=== PATIENT | male | born 1955 | race African-American/Black ===

== ENCOUNTER → 2018-05-04 | Outpatient (CLI) | payer OTHER ==
--- NOTE | 2018-05-07 07:55 | XCELERA REPORT ---
[address] [address] Lower Extremity Arterial Evaluation Name: ADRYAN AVALOS Age: 62 yrs Gender: Male : 1955 Patient Status: Outpatient Patient Location: Study Date: 05/04/2018 08:02 AM Procedure: A color flow and duplex scan of the lower extremity arteries was performed bilaterally with velocity and waveform anaylsis. Reason For Study: PVD Ordering Physician: ALBERT DASILVA Performed By: Elder Lima Measurements and Calculations Right Left ROOFING APPLICATOR PSV 161.5 128.5 cm/sec Prox PFA PSV -177.3 -163.3 cm/sec Prox SFA PSV 118.7 108.7 cm/sec Mid SFA PSV -149.3 -95.4 cm/sec Dist SFA PSV -78.1 -143.0 cm/sec Prox Pop A PSV 120.1 125.7 cm/sec Dist BARBARA PSV 57.1 51.0 cm/sec Dist AIRLINE CUSTOMER SERVICE AGENT PSV 85.1 84.5 cm/sec Jefferson Pedis PSV -7.7 cm/sec Right Side Arterial Evaluation Normal velocity and triphasic waveforms noted from the Common Femoral artery to the infrageniculate vessels. Biphasic, low velocity, "to and fro" flow in the Dorsalis Pedis. Unquantifiable stenosis at the Dorsalis Pedis artery. Ankle Brachial index was declined. Left Side Arterial Evaluation Normal velocity and triphasic waveforms noted in the Common Femoral artery. Biphasic in the Popliteal. Monophasic with preserved velocities in the infrageniculate vessels. 20-49% stenosis at the Femoral artery. sequential changes. Ankle Brachial index not possible due to bandaging.. Interpretation Summary Mild hemodynamically significant lesions in the right lower extremity only, on duplex imaging, at rest. Severe hemodynamically significant lesions in the left lower extremity only, on duplex imaging, at rest. : ALBERT DASILVA > [place]
== END ==
LOC: SP 07:38
PROVIDERS: ATTEND Podiatrist Foot & Ankle Surgery
DX: I73.9 Peripheral vascular disease, unspecified (principal)
CPT/HCPCS: 93925

== ENCOUNTER 2018-07-25 00:45 | Inpatient (IN) | payer OTHER ==
--- NOTE | 2018-07-25 00:55 | ER Document Report ---
ED General - General Stated Complaint: RESPIRATORY DISTRESS Time Seen by Provider: 07/25/18 00:52 Cannot obtain history due to: Altered mental status Notes: Patient is a 62-year-old male with a past medical history of CHF, diabetes, hypertension, hyperlipidemia, peripheral arterial disease, who presents by EMS with an episode of altered mental status and hypoxia. Apparently EMS was contacted and brought to his [facility] facility. They noted that the patient was hypoglycemic to 45 and saturating 61% on 4 liters of nasal cannula. Patient was given D50 and transported to the emergency department. History is quite limited as patient is somewhat confused, uncertain of his medical history or what happened tonight. TRAVEL OUTSIDE OF THE [place] IN LAST 30 DAYS: No - Related Data Allergies/Adverse Reactions: No Known Allergies Allergy (Verified 07/25/18 01:47) Past Medical History - General Information source: Patient, Emergency Med Personnel - Social History Smoking Status: Never Smoker Frequency of alcohol use: None Drug Abuse: None Lives with: Senior Living Family History: Reviewed & Not Pertinent Review of Systems - Review of Systems Notes: Constitutional: Negative for fever. HENT: Negative for sore throat. Eyes: Negative for visual changes. Cardiovascular: Negative for chest pain. Respiratory: Positive for shortness of breath. Gastrointestinal: Negative for abdominal pain, vomiting or diarrhea. Genitourinary: Negative for dysuria. Musculoskeletal: Negative for back pain. Skin: Negative for rash. Neurological: Negative for headaches, weakness or numbness. 10 point ROS negative except as marked above and in HPI. Physical Exam - Vital signs Vitals: Pulse Resp BP Pulse Ox 92 20 134/72 H 92 07/25/18 00:46 07/25/18 00:46 07/25/18 00:46 07/25/18 00:46 Interpretation: Hypoxic, Tachypneic Notes: PHYSICAL EXAMINATION: GENERAL: Moderate respiratory distress HEAD: Atraumatic, normocephalic. EYES: Pupils equal round and reactive to light, extraocular movements intact, sclera anicteric, conjunctiva are normal. ENT: nares patent, oropharynx clear without exudates. Moist mucous membranes. NECK: Normal range of motion, supple without lymphadenopathy LUNGS: Moderate respiratory distress, tachypnea, diffuse rales throughout. HEART: Regular tachycardia without murmurs ABDOMEN: Soft, nontender, normoactive bowel sounds. No guarding, no rebound. No masses appreciated. EXTREMITIES: Left BKA. Right lower extremity with 2+ pitting edema NEUROLOGICAL: No focal neurological deficits. Moves all extremities spontaneously and on command. PSYCH: Somewhat lethargic, oriented to person. Unclear to the history of tonight's events. SKIN: Warm, Dry, normal turgor, no rashes or lesions noted. Course - Re-evaluation Re-evalutation: 07/25/18 00:53 Patient presents with hypoglycemia, apparently was in respiratory distress earlier when he is quite lethargic in the setting of hypoglycemia. He presents alert, oriented but very unclear on tonight's events. He does have an oxygen dependency at baseline although is uncertain why. Examination reveals rales at the bases bilaterally. He is moderately tachypneic, in moderate respiratory distress, saturating 96% on 4 L by nasal cannula but does not know how much he normally uses. He denies any chest pain. He states prior to the onset of hyperglycemia he did not have any acute complaints. Will obtain chest x-ray, labs, reassess the patient. Patient is in guarded condition and will require frequent reassessments. 07/25/18 01:52 Patient is hypothermic, rectal temperature 93.7. Chest x-ray does show marketed pulmonary edema, vascular congestion and cardiomegaly. Patient is saturating 91-92% on 5 L. He will be transitioned to BiPAP given the profound degree of pulmonary edema. IV furosemide, 40 mg will be administered. His labs also show prominent anemia at 7.8 although review of previous laboratories does show that this is chronic in nature. No evidence of renal dysfunction. BNP is also quite elevated. Patient will require hospitalization. Continue to monitor for stabilization and then discussed with the hospitalist. 07/25/18 02:34 I discussed this case with Dr. Marcum who has accepted patient for admission. The patient's work of breathing has much improved on BiPAP. - Vital Signs Vital signs: Temp Pulse Resp BP Pulse Ox 93.7 F L 92 22 H 134/72 H 94 07/25/18 01:43 07/25/18 00:46 07/25/18 01:55 07/25/18 01:01 07/25/18 01:55 - Laboratory Result Diagrams: 07/25/18 00:52 07/25/18 00:52 Laboratory results interpreted by me: 07/25/18 07/25/1818 00:52 00:52 00:52 RBC 2.93 L Hgb 7.9 L Hct 24.2 L MCH 26.8 L RDW 17.6 H Plt Count 575 H Seg Neutrophils % 80.7 H Lymphocytes % 9.8 L Carbon Dioxide 31 H BUN 38 H Calcium 8.3 L NT-Pro-B Natriuret Pep 4720 H - Diagnostic Test Radiology reviewed: Image reviewed, Reports reviewed Radiology results interpreted by me: 07/25/18 01:52 Chest x-ray: Pulmonary edema, cardiomegaly, vascular congestion Critical Care Note - Critical Care Note Total time excluding time spent on procedures (mins): 38 Comments: Critical care time spent obtaining history from patient or surrogate, discussions with consultants, development of treatment plan with patient or surrogate, evaluation of patient's response to treatment, examination of patient , ordering and performing treatments and interventions, ordering and review of laboratory studies, re-evaluation of patient's condition, ordering and review of radiographic studies and review of old charts Discharge - Discharge Clinical Impression: Respiratory distress, Chronic anemia CHF exacerbation Qualifiers: Heart failure type: unspecified Qualified Code(s): I50.9 - Heart failure, unspecified Pulmonary edema Qualifiers: Chronicity: acute Qualified Code(s): J81.0 - Acute pulmonary edema Hypothermia Qualifiers: Encounter type: initial encounter Qualified Code(s): T68.XXXA - Hypothermia, initial encounter Condition: Fair Disposition: ADMITTED INPATIENT Admitting Provider: Hospitalist Unit Admitted: Telemetry Referrals: MARVIN GERMAIN MD [NO LOCAL MD] - Follow up as needed
[2018-07-25 01:18] LABS: ANION GAP 6 (5-19); BLOOD UREA NITROGEN 38 mg/dL (7-20); CALCIUM 8.3 mg/dL (8.4-10.2); CARBON DIOXIDE 31 mmol/L (22-30); CHLORIDE 100 mmol/L (98-107); GLUCOSE 89 mg/dL (75-110); POTASSIUM 4.2 mmol/L (3.6-5.0)
--- NOTE | 2018-07-25 01:25 | RADIOLOGY REPORT (SQ) ---
XR CHEST 1 VIEW HISTORY: Shortness of breath. COMPARISON: None. FINDINGS/IMPRESSION: Mild cardiomegaly is present with pulmonary vascular congestion. Airspace opacity within the right mid and lower lung zones. Hazy opacity in the left midlung zone. Small bowel pleural effusions are present. No acute osseous findings.
[2018-07-25 01:28] LABS: ABSOLUTE LYMPHOCYTES (AUTO) 0.9 10^3/uL (0.5-4.7); ABSOLUTE MONOCYTES (AUTO) 0.8 10^3/uL (0.1-1.4); ABSOLUTE NEUT (AUTO) 7.3 10^3/uL (1.7-8.2); BASOPHILS % (AUTO) 0.4 % (0-2); EOSINOPHILS % (AUTO) 0.4 % (0-6); HEMATOCRIT 24.2 % (37.9-51.0); LYMPHOCYTES % (AUTO) 9.8 % (13-45); MEAN CORPUSCULAR HEMOGLOBIN 26.8 pg (27.0-33.4); MEAN CORPUSCULAR HGB CONC 32.5 g/dL (32.0-36.0); MEAN CORPUSCULAR VOLUME 83 fl (80-97); MONOCYTES % (AUTO) 8.7 % (3-13); NT PRO BNP 4720 pg/mL (5-900); PLATELET COUNT 575 10^3/uL (150-450); RED BLOOD COUNT 2.93 10^6/uL (4.35-5.55); RED CELL DISTRIBUTION WIDTH 17.6 % (11.5-14.0); SEGMENTED NEUTROPHILS % (AUTO) 80.7 % (42-78); TOTAL CELLS COUNTED % (AUTO) 100 %; WHITE BLOOD COUNT 9.1 10^3/uL (4.0-10.5)
[2018-07-25 01:29] LABS: HEMOGLOBIN 7.9 g/dL (13.5-17.0)
[2018-07-25 01:32] LABS: TROPONIN I < 0.012 ng/mL
[2018-07-25] MEDS ORDERED: FUROSEMIDE INJ/PF 40 MG/4 ML SDV IV ONE (01:36)
[2018-07-25] MEDS ORDERED: ENALAPRILAT DIHYDRATE INJ/PF 1.25 MG/1 ML SDV IV PRN (03:06)
[2018-07-25] MEDS ORDERED: GLUCAGON,HUMAN RECOMB 1 MG INJ IM PRN (03:06)
[2018-07-25] MEDS ORDERED: DEXTROSE 40% GEL 15 GM TUBE PO PRN ×2 (03:06)
[2018-07-25] MEDS ORDERED: MAGNESIUM HYDROXIDE SUSP 30 ML UDCUP PO PRN (03:06)
[2018-07-25] MEDS ORDERED: INSULIN LISPRO 100 UNIT/ML 3 ML VIAL SUBCUT PRN (03:06)
[2018-07-25] MEDS ORDERED: ACETAMINOPHEN 325 MG TABLET PO PRN (03:06)
[2018-07-25] MEDS ORDERED: DEXTROSE 50%-WATER 25 GM/50 ML DISP.SYRIN IV PRN ×2 (03:06)
[2018-07-25] MEDS ORDERED: NITROGLYCERIN 5 MG (0.2 MG/HR) PATCH.TD24 TD ONE (03:30)
[2018-07-25 05:34] LABS: ABSOLUTE RETICS # 0.065 10^6/uL (0.028-0.122); RETICULOCYTE COUNT (AUTO) 2.32 % (0.66-2.85)
[2018-07-25 05:41] LABS: CREATINE KINASE 70 U/L (55-170); IRON(TIBC) 14.6 ug/dL (49-181)
[2018-07-25 05:57] LABS: CREATINE KINASE MB 2.53 ng/mL (<4.55); TROPONIN I 0.028 ng/mL
--- NOTE | 2018-07-25 06:32 | PDOC H&P ---
History of Present Illness Admission Date/PCP: 07/25/18 02:51 Patient complains of: Respiratory distress History of Present Illness: ADRYAN AVALOS is a 62 year old male custodial resident with altered mental status and unclear history as he arrives without medical history. He is noted by nursing staff to have shortness of breath and referred to the emergency room for evaluation where he is found to have bilateral infiltrates, hypoglycemia, hypothermia and referred to the hospitalist for admission. He receives dextrose , bear hugger and empiric antibiotics and referred to the hospitalist for admission. Past Medical History Medical History: Other - Unknown Cardiac Medical History: Reports: Congestive Heart Failure Endocrine Medical History: Reports: Diabetes Mellitus Type 2 Psychiatric Medical History: Reports: Dementia Past Surgical History Past Surgical History: Reports: Other - Left BKA Social History Information Source: Emergency Med Personnel, [facility] Records Lives with: Detention Smoking Status: Never Smoker - Advance Directive Resuscitation Status: Full Code Family History Family History: Other - Unobtainable Parental Family History Reviewed: No - Unobtainable Children Family History Reviewed: No - Unobtainable Sibling(s) Family History Reviewed.: No - Unobtainable Medication/Allergy Allergies/Adverse Reactions: No Known Allergies Allergy (Verified 07/25/18 01:47) Review of Systems ROS unobtainable: Due to mental status Physical Exam Vital Signs: Temp Pulse Resp BP Pulse Ox 93.7 F L 92 14 141/60 H 93 07/25/18 01:43 07/25/18 00:46 07/25/18 02:02 07/25/18 02:02 07/25/18 02:02 General appearance: PRESENT: disheveled, mild distress. ABSENT: cooperative Head exam: PRESENT: atraumatic, normocephalic Eye exam: PRESENT: conjunctiva pink, EOMI, PERRLA. ABSENT: scleral icterus Ear exam: PRESENT: normal external ear exam Mouth exam: PRESENT: moist, tongue midline Neck exam: ABSENT: carotid bruit, JVD, lymphadenopathy, thyromegaly Respiratory exam: PRESENT: accessory muscle use, crackles, prolonged expiratory phas, rales, retraction, symmetrical, tachypnea Cardiovascular exam: PRESENT: RRR, tachycardia. ABSENT: diastolic murmur, rubs , systolic murmur Pulses: PRESENT: normal dorsalis pedis pul Vascular exam: PRESENT: normal capillary refill GI/Abdominal exam: PRESENT: normal bowel sounds, soft. ABSENT: distended, guarding, mass, organolmegaly, rebound, tenderness Rectal exam: PRESENT: deferred Extremities exam: PRESENT: full ROM. ABSENT: calf tenderness, clubbing, pedal edema Neurological exam: PRESENT: alert, altered, awake, CN II-XII grossly intact. ABSENT: motor sensory deficit Psychiatric exam: PRESENT: appropriate affect, normal mood. ABSENT: homicidal ideation, suicidal ideation Skin exam: PRESENT: dry, intact, warm. ABSENT: cyanosis, rash Results Laboratory Results: 07/25/18 07/25/18 05:00 05:00 Retic Count (auto) 2.32 Absolute Retic 0.065 TSH 1.76 07/25/18 05:00 CK-MB (CK-2) 2.53 Troponin I 0.028 Impressions: Chest X-Ray 07/25/18 00:52 FINDINGS/IMPRESSION: Mild cardiomegaly is present with pulmonary vascular congestion. Airspace opacity within the right mid and lower lung zones. Hazy opacity in the left midlung zone. Small bowel pleural effusions are present. No acute osseous findings. Assessment & Plan - Diagnosis (1) CHF exacerbation Qualifiers: Heart failure type: unspecified Qualified Code(s): I50.9 - Heart failure, unspecified Is this a current diagnosis for this admission?: Yes Plan: Unclear baseline ejection fraction. Obtain 2D echo. Avoid volume overload (2) Pneumonia Is this a current diagnosis for this admission?: Yes Plan: Pneumonia care set, empiric antibiotics, follow-up blood culture and CBC (3) Diabetes Is this a current diagnosis for this admission?: Yes Plan: Humalog sliding scale, obtain [facility] records (4) Encephalopathy Is this a current diagnosis for this admission?: Yes Plan: Presumably acute on chronic exacerbation of vascular dementia. Supportive measures and obtain [facility] documentation - Time Time Spent: 50 to 70 Minutes - Inpatient Certification Medical Necessity: Need Close Monitoring Due to Risk of Patient Decompensation
[2018-07-25] MEDS: HEPARIN SOD (PORCINE) 5,000 UNIT/ML 1 ML SYRINGE SUBCUT SCH ×3 (06:41→21:40)
[2018-07-25 06:48] LABS: FOLATE 7.06 ng/mL (>2.76)
[2018-07-25] MEDS ORDERED: LEVOFLOXACIN 750 MG/D5W RTU 750 MG/150 ML RTUPB IV ONE (07:00)
[2018-07-25 07:38] LABS: URINE AMPHETAMINES SCREEN NEGATIVE; URINE BARBITURATES SCREEN NEGATIVE; URINE BENZODIAZEPINES SCREEN NEGATIVE; URINE COCAINE SCREEN NEGATIVE; URINE MARIJUANA (THC) SCREEN NEGATIVE; URINE METHADONE SCREEN NEGATIVE; URINE PHENCYCLIDINE SCREEN NEGATIVE
--- NOTE | 2018-07-25 09:32 | EKG REPORT ---
SEVERITY:- ABNORMAL ECG - SINUS RHYTHM NONSPECIFIC T ABNORMALITIES, LATERAL LEADS : Confirmed by: Svitlana Vick 25-Jul-2018 09:32:06
[2018-07-25 10:02] LABS: CREATINE KINASE MB 1.81 ng/mL (<4.55); TROPONIN I 0.075 ng/mL
--- NOTE | 2018-07-25 12:59 | PDOC PROGRESS REPORT ---
Subjective Progress Note for:: 07/25/18 Subjective:: 62-year-old -German male who was transferred from a [facility] facility where he was rehabbing. Patient had confusion hypothermia. His blood glucose was 45 at the time he arrived at the emergency room. 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 He had a failed transmetatarsal amputation prior to that and apparently had contracted a endocarditis. A PICC line is in place and he was on cefazolin every 8 hours. This was accomplished at a different facility and the records are currently not available.Patient's chest x-ray shows bilateral pleural effusions and congestive pattern.He was placed on Levaquin empirically apparently was on Cipro p.o. and the ceftezole and at the [facility] but it is unclear why both antibiotics were being utilized.This morning patient is awake and alert able to provide some of his history. He is coming up on the end of his antibiotic therapy and states he was to be evaluated next Thursday at which time the antibiotics were to be discontinued. Reason For Visit: HEART FAILURE Physical Exam Vital Signs: Temp Pulse Resp BP Pulse Ox 97.6 F 85 12 117/63 100 07/25/18 11:49 07/25/18 11:49 07/25/18 11:49 07/25/18 11:49 07/25/18 11:49 Intake & Output 07/24/18 07/25/18 07/26/18 06:59 06:59 06:59 Output Total 450 Balance -450 Weight 81.7 kg General appearance: PRESENT: no acute distress, well-developed, well-nourished Eye exam: PRESENT: conjunctiva pink, EOMI, PERRLA. ABSENT: scleral icterus Mouth exam: PRESENT: moist, tongue midline Neck exam: ABSENT: carotid bruit, JVD, lymphadenopathy, thyromegaly Respiratory exam: PRESENT: clear to auscultation luz. ABSENT: rales, rhonchi, wheezes Cardiovascular exam: PRESENT: RRR, systolic murmur - 2/6. ABSENT: diastolic murmur, rubs GI/Abdominal exam: PRESENT: normal bowel sounds, soft. ABSENT: distended, guarding, mass, organolmegaly, rebound, tenderness Musculoskeletal exam: PRESENT: other - Status post BKA left lower extremity. Stump intact small area of granulation tissue on the lateral aspect of the wound no drainage no evidence of infection. Neurological exam: PRESENT: alert, awake, CN II-XII grossly intact. ABSENT: altered, motor sensory deficit Results Laboratory Results: 07/25/18 07/25/18 07/25/18 05:00 05:00 05:00 Retic Count (auto) 2.32 Absolute Retic 0.065 Iron 14.6 L TIBC 210 L % Saturation 7 Ferritin 29.00 Vitamin B12 983.0 H Folate 7.06 TSH 1.76 07/25/18 07/25/18 07/25/18 05:00 05:00 09:23 Creatine Kinase 70 55 CK-MB (CK-2) 2.53 Troponin I 0.028 07/25/18 09:23 Creatine Kinase CK-MB (CK-2) 1.81 Troponin I 0.075 Impressions: Chest X-Ray 07/25/18 00:52 FINDINGS/IMPRESSION: Mild cardiomegaly is present with pulmonary vascular congestion. Airspace opacity within the right mid and lower lung zones. Hazy opacity in the left midlung zone. Small bowel pleural effusions are present. No acute osseous findings. Assessment & Plan - Diagnosis (1) CHF exacerbation Qualifiers: Heart failure type: unspecified Qualified Code(s): I50.9 - Heart failure, unspecified Is this a current diagnosis for this admission?: Yes Plan: Unclear if patient has normal ejection fraction no prior echocardiogram in our system. We will obtain an echocardiogram we will continue diuresis (2) Endocarditis determined by echocardiography Is this a current diagnosis for this admission?: Yes Plan: Due to the patient's presentation with bilateral effusions and a congestive pattern will obtain an echocardiogram to assess his endocarditis and possible valvulopathy as a result. We will continue his ceftezole and for the present blood cultures have been obtained. Patient has had approximately 5 weeks of IV antibiotics as per his history. Will attempt to obtain culture results and information regarding his diagnosis and treatment from his prior facility. (3) Hypothermia Qualifiers: Encounter type: initial encounter Qualified Code(s): T68.XXXA - Hypothermia , initial encounter Is this a current diagnosis for this admission?: Yes Plan: Resolved (4) Diabetes Qualifiers: Diabetes mellitus type: type 2 Diabetes mellitus skilled nursing insulin use: without skilled nursing use Diabetes mellitus complication status: with circulatory complication Diabetes mellitus complication detail: with other circulatory complications Qualified Code(s): E11.59 - Type 2 diabetes mellitus with other circulatory complications Is this a current diagnosis for this admission?: Yes Plan: On Metformin continue metformin and sliding scale insulin. (5) Encephalopathy Is this a current diagnosis for this admission?: Yes Plan: Resolved (6) Iron deficiency anemia Is this a current diagnosis for this admission?: Yes Plan: Continue p.o. iron supplementation
[2018-07-25] MEDS ORDERED: POTASSIUM CHLORIDE 10 MEQ CAPSULE.ER PO SCH (13:00)
[2018-07-25] MEDS: ASPIRIN 81 MG TABLET, ENT COATED PO SCH (13:45)
[2018-07-25] MEDS: DOCUSATE SODIUM 100 MG CAPSULE PO SCH (13:51)
[2018-07-25] MEDS ORDERED: NACL IV SCH (14:00)
[2018-07-25] MEDS ORDERED: CEFAZOLIN SODIUM IV SCH (14:00)
[2018-07-25] MEDS ORDERED: [UNRECOGNIZED DRUG - OTHER] IV SCH (14:00)
[2018-07-25] MEDS: CEFAZOLIN 2 GM/D5W RTU 2 GM/50 ML RTUPB IV SCH ×2 (15:40→21:37)
[2018-07-25 16:07] LABS: CREATINE KINASE MB 1.35 ng/mL (<4.55); TROPONIN I 0.082 ng/mL
[2018-07-25] MEDS: TAMSULOSIN HCL 0.4 MG CAP.SR.24H PO SCH (17:17)
[2018-07-25] MEDS: FERROUS SULFATE 325 MG TABLET PO SCH (17:17)
[2018-07-25] MEDS: METFORMIN HCL 500 MG TABLET PO SCH (17:17)
[2018-07-25] MEDS ORDERED: (PENDING PHARMACY ID) (Juniper/Cala/Znox/Pet,Wh/Lan [Endit Ointment] 1 APPLIC) TOP SCH (18:00)
[2018-07-25] MEDS: ATORVASTATIN CALCIUM 80 MG TABLET PO SCH (21:39)
[2018-07-25] MEDS: FUROSEMIDE INJ/PF 40 MG/4 ML SDV IV SCH (21:40)
[2018-07-26] MEDS: HEPARIN SOD (PORCINE) 5,000 UNIT/ML 1 ML SYRINGE SUBCUT SCH ×3 (05:34→21:35)
[2018-07-26] MEDS: CEFAZOLIN 2 GM/D5W RTU 2 GM/50 ML RTUPB IV SCH ×3 (05:35→21:35)
[2018-07-26 05:43] LABS: ABSOLUTE EOSINOPHILS # (AUTO) 0.3 10^3/uL (0.0-0.6); ABSOLUTE LYMPHOCYTES (AUTO) 1.1 10^3/uL (0.5-4.7); ABSOLUTE MONOCYTES (AUTO) 0.7 10^3/uL (0.1-1.4); ABSOLUTE NEUT (AUTO) 5.7 10^3/uL (1.7-8.2); BASOPHILS % (AUTO) 0.5 % (0-2); EOSINOPHILS % (AUTO) 3.2 % (0-6); HEMATOCRIT 25.1 % (37.9-51.0); LYMPHOCYTES % (AUTO) 14.2 % (13-45); MEAN CORPUSCULAR HEMOGLOBIN 26.5 pg (27.0-33.4); MEAN CORPUSCULAR VOLUME 83 fl (80-97); MONOCYTES % (AUTO) 9.1 % (3-13); PLATELET COUNT 563 10^3/uL (150-450); RED BLOOD COUNT 3.03 10^6/uL (4.35-5.55); RED CELL DISTRIBUTION WIDTH 17.5 % (11.5-14.0); TOTAL CELLS COUNTED % (AUTO) 100 %; WHITE BLOOD COUNT 7.8 10^3/uL (4.0-10.5)
[2018-07-26] MEDS ORDERED: LEVOFLOXACIN 750 MG/D5W RTU 750 MG/150 ML RTUPB IV SCH (08:00)
[2018-07-26] MEDS: CLOPIDOGREL BISULFATE 75 MG TABLET PO SCH (10:35)
[2018-07-26] MEDS: FUROSEMIDE INJ/PF 40 MG/4 ML SDV IV SCH ×2 (10:35→21:35)
[2018-07-26] MEDS: FINASTERIDE 5 MG TABLET PO SCH (10:35)
[2018-07-26] MEDS: POTASSIUM CHLORIDE 10 MEQ CAPSULE.ER PO SCH (10:35)
[2018-07-26] MEDS: METFORMIN HCL 500 MG TABLET PO SCH ×2 (10:35→17:51)
[2018-07-26] MEDS: FERROUS SULFATE 325 MG TABLET PO SCH ×2 (10:35→17:51)
[2018-07-26] MEDS: ASPIRIN 81 MG TABLET, ENT COATED PO SCH (10:35)
[2018-07-26] MEDS: LISINOPRIL 10 MG TABLET PO SCH (10:35)
[2018-07-26] MEDS: DOCUSATE SODIUM 100 MG CAPSULE PO SCH (10:35)
[2018-07-26] MEDS: NITROGLYCERIN 5 MG (0.2 MG/HR) PATCH.TD24 TD SCH (10:36)
--- NOTE | 2018-07-26 15:05 | PDOC PROGRESS REPORT ---
Subjective Progress Note for:: 07/26/18 Subjective:: 62-year-old -Togol[place] male who was transferred from a nursing home facility where he was rehabbing. Patient had confusion hypothermia. His blood glucose was 45 at the time he arrived at the emergency room. 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 He had a failed transmetatarsal amputation prior to that and apparently had contracted a endocarditis. A PICC line is in place and he was on cefazolin every 8 hours. This was accomplished at a different facility and the records are currently not available.Patient's chest x-ray shows bilateral pleural effusions and congestive pattern.He was placed on Levaquin empirically apparently was on Cipro p.o. and the [facility]eftezole and at the [facility] but it is unclear why both antibiotics were being utilized. Patient awake alert no specific complaints.Records yet to be received from facility where surgery took place.O2 requirements decreasing. Troponin mildly elevated consistent with demand ischemia from CHF. Echocardiogram pending. Patient has no complaints tolerating meals would like to get back to rehab. Reason For Visit: HEART FAILURE Physical Exam Vital Signs: Temp Pulse Resp BP Pulse Ox 97.4 F 80 20 121/68 96 07/26/18 03:50 07/26/18 07:00 07/26/18 04:00 07/26/18 03:50 07/26/18 12:29 Intake & Output 07/25/18 07/26/18 07/27/18 06:59 06:59 06:59 Intake Total 420 440 Output Total 2000 300 Balance -1580 140 Weight 82.7 kg General appearance: PRESENT: no acute distress, well-developed, well-nourished Neck exam: ABSENT: carotid bruit, JVD, lymphadenopathy, thyromegaly Respiratory exam: PRESENT: clear to auscultation luz. ABSENT: rales, rhonchi, wheezes Cardiovascular exam: PRESENT: RRR. ABSENT: diastolic murmur, rubs, systolic murmur Musculoskeletal exam: PRESENT: deformity - BKA left legIntact Results Laboratory Results: 07/26/18 04:03 07/26/18 04:03 WBC 7.8 RBC 3.03 L Hgb 8.0 L Hct 25.1 L MCV 83 MCH 26.5 L MCHC 32.0 RDW 17.5 H Plt Count 563 H Seg Neutrophils % 73.0 Lymphocytes % 14.2 Monocytes % 9.1 Eosinophils % 3.2 Basophils % 0.5 Absolute Neutrophils 5.7 Absolute Lymphocytes 1.1 Absolute Monocytes 0.7 Absolute Eosinophils 0.3 Absolute Basophils 0.0 07/25/18 07/25/18 07/25/18 05:00 05:00 09:23 Creatine Kinase 70 55 CK-MB (CK-2) 2.53 Troponin I 0.028 07/25/18 07/25/18 07/25/18 09:23 15:24 15:24 Creatine Kinase 42 L CK-MB (CK-2) 1.81 1.35 Troponin I 0.075 0.082 07/26/18 07/26/18 00:37 04:03 Creatine Kinase CK-MB (CK-2) Troponin I 0.049 0.037 Impressions: Chest X-Ray 07/25/18 00:52 FINDINGS/IMPRESSION: Mild cardiomegaly is present with pulmonary vascular congestion. Airspace opacity within the right mid and lower lung zones. Hazy opacity in the left midlung zone. Small bowel pleural effusions are present. No acute osseous findings. Assessment & Plan - Diagnosis (1) CHF exacerbation Qualifiers: Heart failure type: unspecified Qualified Code(s): I50.9 - Heart failure, unspecified Is this a current diagnosis for this admission?: Yes Plan: Continue Lasix diuresis for an additional 24 hours and convert to p.o. medication. Echocardiogram pending. Troponins downtrending mild elevation to begin with consistent with demand ischemia. I requested records to see if preoperative cardiac workup performed prior to his amputation. (2) Endocarditis determined by echocardiography Is this a current diagnosis for this admission?: Yes Plan: Due to the patient's presentation with bilateral effusions and a congestive pattern will obtain an echocardiogram to assess his endocarditis and possible valvulopathy as a result. We will continue his ceftezole and for the present blood cultures have been obtained. Patient has had approximately 5 weeks of IV antibiotics as per his history. Will attempt to obtain culture results and information regarding his diagnosis and treatment from his prior facility. (3) Diabetes Qualifiers: Diabetes mellitus type: type 2 Diabetes mellitus half-way insulin use: without half-way use Diabetes mellitus complication status: with circulatory complication Diabetes mellitus complication detail: with other circulatory complications Qualified Code(s): E11.59 - Type 2 diabetes mellitus with other circulatory complications Is this a current diagnosis for this admission?: Yes Plan: On Metformin continue metformin and sliding scale insulin.Patient had a hypoglycemic spell on admission of 45 which may have precipitated his heart failure.Suspect he may be on sliding scale at the nursing home facility as metformin should not create profound hypoglycemia. (4) Encephalopathy Is this a current diagnosis for this admission?: Yes Plan: Resolved secondary to hypoglycemia (5) Iron deficiency anemia Is this a current diagnosis for this admission?: Yes Plan: Continue p.o. iron supplementation (6) Hypothermia Qualifiers: Encounter type: initial encounter Qualified Code(s): T68.XXXA - Hypothermia , initial encounter Is this a current diagnosis for this admission?: Yes - Time Time Spent with patient: 25-34 minutes
[2018-07-26] MEDS: TAMSULOSIN HCL 0.4 MG CAP.SR.24H PO SCH (17:51)
--- NOTE | 2018-07-26 20:04 | XCELERA REPORT ---
[address] [address] Transthoracic Echocardiogram Report Name: ADRYAN AVALOS Age: 62 yrs Gender: Male : 1955 Patient Status: Inpatient Patient Location: [address] [place] [address] Study Date: 07/26/2018 11:05 AM Height: 68 in Weight: 194 lb BSA: 2.0 m2 Procedure: A two-dimensional transthoracic echocardiogram with color flow and Doppler was performed. Study Quality: Fair. Reason For Study: systolic murmur History: systolic murmur. Ordering Physician: KOLTON PINTO Performed By: Sharda Luke Interpretation Summary The left ventricle is normal in size. There is normal left ventricular wall thickness. Left ventricular systolic function is low normal. LV EF is 55% Doppler measurements suggest normal left ventricular diastolic function The left ventricular wall motion is normal. There is no thrombus. The right ventricle is normal in size and function. The right atrium is normal. The left atrial size is normal. The interatrial septum is intact with no evidence for an atrial septal defect. There is no evidence of mitral valve prolapse. There is no vegetation seen on the mitral valve. There is no mitral valve stenosis. There is a trace amount of mitral regurgitation There is no aortic valvular vegetation. There is no aortic valve stenosis There is no LVOT obstruction. No aortic regurgitation is present. Moderate Pulmonary hypertension.RVSP is 48 to 53 mm of Hg , with RA mean of 5 to 10. There is a mild amount of tricuspid regurgitation The inferior vena cava appeared normal and decreased > 50% with respiration (RAP 5-10 mmHg) There is no pericardial effusion. MMode/2D Measurements & Calculations RVDd: 3.0 cm LVIDd: 5.0 cm FS: 17.2 % Ao root diam: 2.7 cm IVSd: 0.94 cm LVIDs: 4.2 cm EDV(Teich): 119.9 ml Ao root area: 5.5 cm2 LVPWd: 0.87 cm ESV(Teich): 77.0 ml LA dimension: 3.7 cm EF(Teich): 35.7 % Doppler Measurements & Calculations MV E max mann: MV P1/2t max mann: Ao V2 max: LV V1 max P.1 cm/sec 112.5 cm/sec 121.6 cm/sec 4.7 mmHg MV A max mann: MV P1/2t: 55.9 msec Ao max P.9 mmHgLV V1 max: 74.5 cm/sec MVA(P1/2t): 3.9 cm2 108.6 cm/sec MV E/A: 1.5 MV dec slope: 589.3 cm/sec2 MV dec time: 0.21 sec PA V2 max: TR max mann: MV P1/2t-pr_phl: 100.2 cm/sec 324.7 cm/sec 55.9 msec PA max P.0 mmHgTR max P.2 mmHg Left Ventricle The left ventricle is normal in size. There is normal left ventricular wall thickness. Left ventricular systolic function is low normal. LV EF is 55%. Doppler measurements suggest normal left ventricular diastolic function. The left ventricular wall motion is normal. There is no thrombus. There is no ventricular septal defect visualized. Right Ventricle The right ventricle is normal in size and function. Atria The right atrium is normal. The left atrial size is normal. The interatrial septum is intact with no evidence for an atrial septal defect. Mitral Valve There is no evidence of mitral valve prolapse. There is no vegetation seen on the mitral valve. There is no mitral valve stenosis. There is a trace amount of mitral regurgitation. Aortic Valve There is no aortic valvular vegetation. There is no aortic valve stenosis. There is no LVOT obstruction. No aortic regurgitation is present. Tricuspid Valve There is no tricuspid stenosis. Moderate Pulmonary hypertension.RVSP is 48 to 53 mm of Hg , with RA mean of 5 to 10. There is a mild amount of tricuspid regurgitation. Pulmonic Valve There is no pulmonic valvular stenosis. There is no pulmonic valvular regurgitation. Great Vessels The aortic root is normal size. The inferior vena cava appeared normal and decreased > 50% with respiration (RAP 5-10 mmHg). Effusions There is no pericardial effusion. : KOLTON PINTO > Chana Gregory
[2018-07-26] MEDS: ATORVASTATIN CALCIUM 80 MG TABLET PO SCH (21:35)
[2018-07-27] MEDS: HEPARIN SOD (PORCINE) 5,000 UNIT/ML 1 ML SYRINGE SUBCUT SCH ×3 (05:13→21:27)
[2018-07-27] MEDS: CEFAZOLIN 2 GM/D5W RTU 2 GM/50 ML RTUPB IV SCH ×3 (05:18→21:30)
[2018-07-27 06:19] LABS: ABSOLUTE EOSINOPHILS # (AUTO) 0.5 10^3/uL (0.0-0.6); ABSOLUTE LYMPHOCYTES (AUTO) 2.2 10^3/uL (0.5-4.7); ABSOLUTE MONOCYTES (AUTO) 0.7 10^3/uL (0.1-1.4); BASOPHILS % (AUTO) 0.5 % (0-2); EOSINOPHILS % (AUTO) 6.2 % (0-6); HEMATOCRIT 24.5 % (37.9-51.0); MEAN CORPUSCULAR HEMOGLOBIN 26.1 pg (27.0-33.4); MEAN CORPUSCULAR VOLUME 82 fl (80-97); MONOCYTES % (AUTO) 8.2 % (3-13); PLATELET COUNT 594 10^3/uL (150-450); RED CELL DISTRIBUTION WIDTH 17.4 % (11.5-14.0); SEGMENTED NEUTROPHILS % (AUTO) 59.1 % (42-78); TOTAL CELLS COUNTED % (AUTO) 100 %; WHITE BLOOD COUNT 8.4 10^3/uL (4.0-10.5)
[2018-07-27 06:21] LABS: HEMOGLOBIN 7.8 g/dL (13.5-17.0)
[2018-07-27 06:37] LABS: ANION GAP 6 (5-19); BLOOD UREA NITROGEN 25 mg/dL (7-20); CALCIUM 8.1 mg/dL (8.4-10.2); CARBON DIOXIDE 32 mmol/L (22-30); CHLORIDE 100 mmol/L (98-107); GLUCOSE 108 mg/dL (75-110); POTASSIUM 4.1 mmol/L (3.6-5.0); SODIUM 137.6 mmol/L (137-145)
[2018-07-27] MEDS: DOCUSATE SODIUM 100 MG CAPSULE PO SCH (10:26)
[2018-07-27] MEDS: FINASTERIDE 5 MG TABLET PO SCH (10:26)
[2018-07-27] MEDS: NITROGLYCERIN 5 MG (0.2 MG/HR) PATCH.TD24 TD SCH (10:26)
[2018-07-27] MEDS: FERROUS SULFATE 325 MG TABLET PO SCH ×2 (10:26→18:26)
[2018-07-27] MEDS: METFORMIN HCL 500 MG TABLET PO SCH ×2 (10:26→18:26)
[2018-07-27] MEDS: POTASSIUM CHLORIDE 10 MEQ CAPSULE.ER PO SCH (10:26)
[2018-07-27] MEDS: CLOPIDOGREL BISULFATE 75 MG TABLET PO SCH (10:26)
[2018-07-27] MEDS: FUROSEMIDE INJ/PF 40 MG/4 ML SDV IV SCH (10:27)
[2018-07-27] MEDS: LISINOPRIL 10 MG TABLET PO SCH (10:27)
[2018-07-27] MEDS: ASPIRIN 81 MG TABLET, ENT COATED PO SCH (10:27)
--- NOTE | 2018-07-27 13:05 | PDOC PROGRESS REPORT ---
Subjective Progress Note for:: 07/27/18 Subjective:: 62-year-old -[place] male who was transferred from a [facility] facility where he was rehabbing. Patient had confusion hypothermia. His blood glucose was 45 at the time he arrived at the emergency room. 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 He had a failed transmetatarsal amputation prior to that and apparently had contracted a endocarditis. A PICC line is in place and he was on cefazolin every 8 hours. This was accomplished at a different facility and the records are currently not available.Patient's chest x-ray shows bilateral pleural effusions and congestive pattern.He was placed on Levaquin empirically apparently was on Cipro p.o. and the ceftezole and at the senior living but it is unclear why both antibiotics were being utilized. Patient awake alert no specific complaints.Records yet to be received from facility where surgery took place.O2 requirements decreasing. Troponin mildly elevated consistent with demand ischemia from CHF. Echocardiogram Shows no valvular vegetations EF 55% mild pulmonary hypertension of 40 mmHg.. Patient has no complaints tolerating meals would like to get back to rehab But facility not excepting until power comes back on. Reason For Visit: HEART FAILURE Physical Exam Vital Signs: Temp Pulse Resp BP Pulse Ox 97.4 F 81 18 128/62 H 97 07/27/18 04:40 07/27/18 07:00 07/27/18 04:40 07/27/18 04:40 07/27/18 09:27 Intake & Output 07/26/18 07/27/18 07/28/18 06:59 06:59 06:59 Intake Total 420 1420 Output Total 2000 1950 Balance -1580 -530 Weight 82.7 kg 79 kg General appearance: PRESENT: no acute distress, well-developed, well-nourished Eye exam: PRESENT: conjunctiva pink, EOMI, PERRLA. ABSENT: scleral icterus Neck exam: ABSENT: carotid bruit, JVD, lymphadenopathy, thyromegaly Respiratory exam: PRESENT: clear to auscultation luz. ABSENT: rales, rhonchi, wheezes Cardiovascular exam: PRESENT: RRR. ABSENT: diastolic murmur, rubs, systolic murmur GI/Abdominal exam: PRESENT: normal bowel sounds, soft. ABSENT: distended, guarding, mass, organolmegaly, rebound, tenderness Extremities exam: PRESENT: full ROM, other - Status post BKA left. ABSENT: calf tenderness, clubbing, pedal edema Results Laboratory Results: 07/27/18 05:26 07/27/18 05:26 07/27/18 07/27/18 05:26 05:26 WBC 8.4 RBC 3.00 L Hgb 7.8 L Hct 24.5 L MCV 82 MCH 26.1 L MCHC 32.0 RDW 17.4 H Plt Count 594 H Seg Neutrophils % 59.1 Lymphocytes % 26.0 Monocytes % 8.2 Eosinophils % 6.2 H Basophils % 0.5 Absolute Neutrophils 5.0 Absolute Lymphocytes 2.2 Absolute Monocytes 0.7 Absolute Eosinophils 0.5 Absolute Basophils 0.0 Sodium 137.6 Potassium 4.1 Chloride 100 Carbon Dioxide 32 H Anion Gap 6 BUN 25 H Creatinine 1.01 Est GFR ( Amer) > 60 Est GFR (Non-Af Amer) > 60 Glucose 108 Calcium 8.1 L 07/25/18 07/25/18 07/25/18 05:00 05:00 09:23 Creatine Kinase 70 55 CK-MB (CK-2) 2.53 Troponin I 0.028 07/25/18 07/25/18 07/25/18 09:23 15:24 15:24 Creatine Kinase 42 L CK-MB (CK-2) 1.81 1.35 Troponin I 0.075 0.082 07/26/18 07/26/18 07/26/18 00:37 04:03 17:00 Creatine Kinase CK-MB (CK-2) Troponin I 0.049 0.037 0.034 Impressions: Chest X-Ray 07/25/18 00:52 FINDINGS/IMPRESSION: Mild cardiomegaly is present with pulmonary vascular congestion. Airspace opacity within the right mid and lower lung zones. Hazy opacity in the left midlung zone. Small bowel pleural effusions are present. No acute osseous findings. Assessment & Plan - Diagnosis (1) CHF exacerbation Qualifiers: Heart failure type: unspecified Qualified Code(s): I50.9 - Heart failure, unspecified Is this a current diagnosis for this admission?: Yes Plan: Resolved. Discontinue Lasix initiated hydrochlorothiazide 25 mg dailyBMP in a.m. (2) Endocarditis determined by echocardiography Is this a current diagnosis for this admission?: Yes Plan: Echocardiography shows no valvulopathy. 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 I suspect they may be discontinued at the end of this week. 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 (4) Encephalopathy Is this a current diagnosis for this admission?: Yes Plan: Secondary to hypoglycemia which may have triggered his mild congestive heart failure.This has resolved (5) Iron deficiency anemia Is this a current diagnosis for this admission?: Yes Plan: Iron replacement therapy (6) Hypothermia Qualifiers: Encounter type: initial encounter Qualified Code(s): T68.XXXA - Hypothermia , initial encounter Is this a current diagnosis for this admission?: Yes - Time Time Spent with patient: 15-24 minutes
--- NOTE | 2018-07-27 15:32 | EKG REPORT ---
SEVERITY:- ABNORMAL ECG - SINUS RHYTHM NONSPECIFIC T ABNORMALITIES, LATERAL LEADS : Confirmed by: Chana Gregory MD 27-Jul-2018 15:32:04
--- NOTE | 2018-07-27 15:54 | PDOC TRANSFER SUMMARY ---
General - Admit/Disc Date/PCP Admission Date/Primary Care Provider: 07/25/18 02:51 Discharge Date: 07/27/18 - Discharge Diagnosis (1) CHF exacerbation Is this a current diagnosis for this admission?: Yes Summary: Acute diastolic congestive heart failure. Echocardiogram confirmed normal ejection fraction no diastolic dysfunction no valvulopathy and mild pulmonary hypertension 40 mmHg (2) Endocarditis determined by echocardiography Is this a current diagnosis for this admission?: Yes Summary: Echocardiogram showed no valvulopathy. (3) Diabetes Is this a current diagnosis for this admission?: Yes Summary: Patient had hypoglycemia of 45 on admission likely the trigger for his mild congestive heart failure. He quickly improved with normalization of his glucose .Would recommend the patient not be placed on sliding scale (4) Encephalopathy Is this a current diagnosis for this admission?: Yes Summary: Due to hypoglycemia (5) Iron deficiency anemia Is this a current diagnosis for this admission?: Yes (6) Hypothermia Is this a current diagnosis for this admission?: Yes - Additional Information Resuscitation Status: Full Code Discharge Diet: Diabetic Discharge Activity: Activity As Tolerated Home Medications: 0.9 % Sodium Chloride [Monoject 0.9% Sodium Chloride] 10 ml IV PRN PRN 07/25/18 0.9 % Sodium Chloride [Monoject 0.9% Sodium Chloride] 10 ml IV Q12 07/25/18 Atorvastatin Calcium [Lipitor 80 mg Tablet] 80 mg PO QHS 07/25/18 Cefazolin Sodium in 0.9 % NaCl [Cefazolin 2 G/100 ml-0.9% NaCl] 2 gm IV Q8 MDD STOP AFTER 07/3007/25/18 Ciprofloxacin HCl [Cipro 500 mg Tablet] 500 mg PO Q12 07/25/18 Clopidogrel Bisulfate [Plavix 75 mg Tablet] 75 mg PO DAILY 07/25/18 Ferrous Sulfate [Feosol] 325 mg PO BID 07/25/18 Finasteride [Proscar] 5 mg PO DAILY 07/25/18 Furosemide [Lasix 40 mg Tablet] 40 mg PO DAILY 07/25/18 Heparin Sodium,Porcine/Pf [Heparin 30 Units/3 ml (10/ml)] 30 unit IV PRN PRN Heparin Sodium,Porcine/Pf [Heparin 30 Units/3 ml (10/ml)] 30 units IV Q12 Juniper/Valencia/Znox/Pet,Wh/Brayan [Endit Ointment] 1 applic TP BID 07/25/18 Metformin HCl [Glucophage] 500 mg PO BIDBS 07/25/18 Nifedipine [Nifedipine ER] 60 mg PO DAILY 07/25/18 Oxybutynin [Oxytrol] 3.9 mg TD Q3D 07/25/18 Pantoprazole Sodium [Protonix] 40 mg PO DAILY 07/25/18 Potassium Chloride [Klor-Con M20] 20 meq PO DAILY 07/25/18 Tamsulosin HCl [Flomax 0.4 mg Cap.sr] 1 cap PO PCSUPPER 07/25/18 Acetaminophen [Tylenol 325 mg Tablet] 650 mg PO Q4HP PRN tablet 07/27/18 Aspirin [Ecotrin 81 mg EC Tablet] 81 mg PO DAILY tabec 07/27/18 Atorvastatin Calcium [Lipitor 80 mg Tablet] 80 mg PO QHS tablet 07/27/18 Clopidogrel Bisulfate [Plavix 75 mg Tablet] 75 mg PO DAILY tablet 07/27/18 Dextrose [Glutose 40% Gel 15 gm Tube] 30 gm PO PRN PRN tube 07/27/18 Docusate Sodium [Colace 100 mg Capsule] 100 mg PO DAILY capsule 07/27/18 Finasteride [Proscar 5 mg Tablet] 5 mg PO DAILY tablet 07/27/18 Glucagon,Human Recombinant [Glucagen Inj 1 mg Vial] 1 mg IM PRN PRN vial Hydrochlorothiazide [Hydrodiuril 25 mg Tablet] 25 mg PO DAILY tablet 07/27/18 Juniper/Valencia/Znox/Pet,Wh/Brayan [Endit Ointment] 1 applic TOP .BID 07/27/18 Lisinopril [Prinivil 10 mg Tablet] 10 mg PO DAILY tablet 07/27/18 Magnesium Hydroxide [Milk of Magnesia 30 ml Udcup] 30 ml PO HSP PRN udc History of Present Illness Admission Date/PCP: 07/25/18 02:51 Patient complains of: Obtundation and shortness of breath History of Present Illness: ADRYAN AVALOS is a 62 year old male [facility] resident with altered mental status and unclear history as he arrives without medical history. He is noted by nursing staff to have shortness of breath and referred to the emergency room for evaluation where he is found to have bilateral infiltrates, hypoglycemia, hypothermia and referred to the hospitalist for admission. He receives dextrose , bear hugger and empiric antibiotics and referred to the hospitalist for admission. Hospital Course Hospital Course: Patient presented with shortness of breath chest x-ray showed vascular congestion without pulmonary edema. Patient's glucose was at 45. He is on Metformin usually and sliding scale and suspect he did not eat adequately for the coverage he was given. His sugar was normalized and he had no further difficulties or mental status changes. Patient had an echocardiogram done because of a history of endocarditis. He is in the final week of his antibiotic course but because of the congestive heart failure an echocardiogram was done. Echocardiogram revealed normal EF at 55 no valvulopathy no diastolic dysfunction normal LV function and pulmonary pressures of 40 mmHg. Patient was diuresed with Lasix and placed on hydrochlorothiazide. His hypokalemia was corrected. He was ready for return to rehab and will follow up with the templer head for his final determination on when to terminate his antibiotics for the endocarditis. Physical Exam Vital Signs: Temp Pulse Resp BP Pulse Ox 97.4 F 81 18 128/62 H 97 07/27/18 04:40 07/27/18 07:00 07/27/18 04:40 07/27/18 04:40 07/27/18 09:27 Intake & Output 07/26/18 07/27/18 07/28/18 06:59 06:59 06:59 Intake Total 420 1420 Output Total 2000 1950 Balance -1580 -530 Weight 82.7 kg 79 kg General appearance: PRESENT: no acute distress, well-developed, well-nourished Eye exam: PRESENT: conjunctiva pink, EOMI, PERRLA. ABSENT: scleral icterus Neck exam: ABSENT: carotid bruit, JVD, lymphadenopathy, thyromegaly Respiratory exam: PRESENT: clear to auscultation luz. ABSENT: rales, rhonchi, wheezes Cardiovascular exam: PRESENT: RRR. ABSENT: diastolic murmur, rubs, systolic murmur GI/Abdominal exam: PRESENT: normal bowel sounds, soft. ABSENT: distended, guarding, mass, organolmegaly, rebound, tenderness Extremities exam: PRESENT: other - BKA left stump intact Results Laboratory Results: 07/27/18 05:26 07/27/18 05:26 07/27/18 07/27/18 05:26 05:26 WBC 8.4 RBC 3.00 L Hgb 7.8 L Hct 24.5 L MCV 82 MCH 26.1 L MCHC 32.0 RDW 17.4 H Plt Count 594 H Seg Neutrophils % 59.1 Lymphocytes % 26.0 Monocytes % 8.2 Eosinophils % 6.2 H Basophils % 0.5 Absolute Neutrophils 5.0 Absolute Lymphocytes 2.2 Absolute Monocytes 0.7 Absolute Eosinophils 0.5 Absolute Basophils 0.0 Sodium 137.6 Potassium 4.1 Chloride 100 Carbon Dioxide 32 H Anion Gap 6 BUN 25 H Creatinine 1.01 Est GFR ( Amer) > 60 Est GFR (Non-Af Amer) > 60 Glucose 108 Calcium 8.1 L 07/25/18 07/25/18 07/25/18 05:00 05:00 09:23 Creatine Kinase 70 55 CK-MB (CK-2) 2.53 Troponin I 0.028 07/25/18 07/25/18 07/25/18 09:23 15:24 15:24 Creatine Kinase 42 L CK-MB (CK-2) 1.81 1.35 Troponin I 0.075 0.082 07/26/18 07/26/18 07/26/18 00:37 04:03 17:00 Creatine Kinase CK-MB (CK-2) Troponin I 0.049 0.037 0.034 Impressions: Chest X-Ray 07/25/18 00:52 FINDINGS/IMPRESSION: Mild cardiomegaly is present with pulmonary vascular congestion. Airspace opacity within the right mid and lower lung zones. Hazy opacity in the left midlung zone. Small bowel pleural effusions are present. No acute osseous findings. Transfer Plan - Disposition Transfer Plan: Continue prior medications follow-up with templer head on determination of when to terminate the antibiotics for the endocarditis. - Time Spent with Patient Time spent with patient: Greater than 30 Minutes Qualifiers - * PATIENT BEING DISCHARGED WITH ANY OF THE FOLLOWING DIAGNOSIS: No, Heart Failure HF Pt being discharged on ACEI for LVEF less than 40%?: Yes HF Pt being discharged on ARBS for LVEF less than 40%?: Yes HF Pt with Afib discharged with Warfarin?: No Reason(s) for not prescribing Warfarin:: Medical Contraindication HF Pt discharged on evidence-based Beta [place]:: Yes Plan Time Spent: Greater than 30 Minutes
[2018-07-27] MEDS: TAMSULOSIN HCL 0.4 MG CAP.SR.24H PO SCH (18:26)
[2018-07-27] MEDS: ATORVASTATIN CALCIUM 80 MG TABLET PO SCH (21:28)
[2018-07-28] MEDS: CEFAZOLIN 2 GM/D5W RTU 2 GM/50 ML RTUPB IV SCH ×2 (05:09→14:54)
[2018-07-28] MEDS: HEPARIN SOD (PORCINE) 5,000 UNIT/ML 1 ML SYRINGE SUBCUT SCH ×2 (05:10→14:53)
[2018-07-28] MEDS ORDERED: HYDROCHLOROTHIAZIDE 25 MG TABLET PO SCH (10:00)
[2018-07-28] MEDS: LISINOPRIL 10 MG TABLET PO SCH (10:23)
[2018-07-28] MEDS: NITROGLYCERIN 5 MG (0.2 MG/HR) PATCH.TD24 TD SCH (10:34)
[2018-07-28] MEDS: POTASSIUM CHLORIDE 10 MEQ CAPSULE.ER PO SCH (10:38)
[2018-07-28] MEDS: FERROUS SULFATE 325 MG TABLET PO SCH ×2 (10:38→17:27)
[2018-07-28] MEDS: DOCUSATE SODIUM 100 MG CAPSULE PO SCH (10:39)
[2018-07-28] MEDS: METFORMIN HCL 500 MG TABLET PO SCH ×2 (10:40→17:26)
[2018-07-28] MEDS: FINASTERIDE 5 MG TABLET PO SCH (10:40)
[2018-07-28] MEDS: ASPIRIN 81 MG TABLET, ENT COATED PO SCH (10:41)
[2018-07-28] MEDS: CLOPIDOGREL BISULFATE 75 MG TABLET PO SCH (10:41)
[2018-07-28 11:55] LABS: BLOOD UREA NITROGEN 20 mg/dL (7-20); CALCIUM 7.9 mg/dL (8.4-10.2); CHLORIDE 100 mmol/L (98-107); GLUCOSE 118 mg/dL (75-110); POTASSIUM 3.9 mmol/L (3.6-5.0)
[2018-07-28 12:00] LABS: CARBON DIOXIDE 34 mmol/L (22-30); SODIUM 137.5 mmol/L (137-145)
[2018-07-28 12:02] LABS: ANION GAP 4 (5-19)
[2018-07-28] MEDS ORDERED: DEXTROSE 5%-NORMAL SALINE 1,000 ML IV PRN (16:33)
[2018-07-28] MEDS: TAMSULOSIN HCL 0.4 MG CAP.SR.24H PO SCH (17:26)
[2018-07-28 20:05] VITALS: BP 131/65
== END 2018-07-28 21:05 | DRG 291 ==
LOC: ER 00:45 → EH 02:51 → 3S 09:41
PROVIDERS: ADMIT Internal Medicine; ATTEND Internal Medicine
DX: I11.0 Hypertensive heart disease with heart failure (principal); J18.9 Pneumonia, unspecified organism; G93.40 Encephalopathy, unspecified; I38 Endocarditis, valve unspecified; I50.31 Acute diastolic (congestive) heart failure; E87.6 Hypokalemia; E11.8 Type 2 diabetes mellitus with unspecified complications; D50.9 Iron deficiency anemia, unspecified; I73.9 Peripheral vascular disease, unspecified; R68.0 Hypothermia, not associated with low environmental temperature; Z89.512 Acquired absence of left leg below knee; Z79.01 Long term (current) use of anticoagulants; Z79.84 Long term (current) use of oral hypoglycemic drugs; Z79.82 Long term (current) use of aspirin; Z79.899 Other long term (current) drug therapy
CPT/HCPCS: 36415; 71045; 80048; 80307; 82550; 82553; 82607; 82728; 82746; 82962; 83540; 83550; 83735; 83880; 84443; 84484; 85025; 85045; 87040; 93005; 93010; 93306; 94660; 96374; 99291; J0690; J1644; J1940; J1956; J3490